=== PATIENT | male | born 1995 | race African-American/Black ===

== ENCOUNTER 2023-12-07 05:51 | Emergency (ER) | payer MEDICAID ==
[~2023-12-07] VITALS: Ht 188 cm; Wt 116.0 kg
[2023-12-07 05:52] VITALS: O2SAT 99
[2023-12-07 05:59] VITALS: BP 175/85; PULSE 85; RESP 18; TEMP 98.3; O2SAT 100
[2023-12-07] MEDS ORDERED: OFLO5DRO4 RIGHT EAR (06:31)
[2023-12-07] MEDS ORDERED: AMOX-494 MT (06:33)
== END 2023-12-07 06:44 | disposition home or self-care (01) ==
LOC: ER 06:02
DX: H66.91 Otitis media, unspecified, right ear (principal); I10 Essential (primary) hypertension
CPT/HCPCS: 99283